=== PATIENT | male | born 1970 | race Hispanic/Latino ===

== ENCOUNTER 2019-10-08 16:19 | Emergency (ER) | payer SELFPAY ==
[2019-10-08 16:47] VITALS: TEMP 98.6
--- NOTE | 2019-10-08 17:12 | RAD ---
XR ABDOMEN SUPINE AND ERECT WITH CHEST (ABD ACUTE SERIES) HISTORY: Left-sided abdominal pain. COMPARISON: None. FINDINGS: There is a nonobstructive bowel gas pattern. There is copious stool throughout the colon and rectum; correlate clinically for constipation. No evidence of pneumoperitoneum. No radiopaque urinary stones are seen. The visualized lungs are clear. IMPRESSION: Findings of constipation. No bowel obstruction. Electronically signed by: Jose Miguel Keys MD 10/08/2019 5:11 PM CDT
--- NOTE | 2019-10-08 18:05 | CT ---
CT ABDOMEN PELVIS WITHOUT IV CONTRAST HISTORY: Left-sided abdominal pain. COMPARISON: None. TECHNIQUE: CT scan of the abdomen and pelvis was performed without IV contrast. This exam was performed according to our departmental dose-optimization program, which includes automated exposure control, adjustment of the mA and/or kV according to patient size and/or use of iterative reconstruction technique. FINDINGS: The lung bases are clear. No pleural or pericardial effusions. There is no hiatal hernia. There is a 5 mm obstructing stone in the distal left ureter with moderate left hydronephrosis and inflammatory changes. The liver, spleen, pancreas, gallbladder, adrenal glands, and right kidney are unremarkable. The pelvic organs are also unremarkable. The stomach and duodenum are unremarkable. No small bowel obstruction. The appendix is normal. No evidence of acute diverticulitis. No adenopathy, free fluid, or free air is identified. The aorta is normal in caliber. No acute bony findings are seen. No abnormal body wall hernia. IMPRESSION: 5 mm obstructing stone in the distal left ureter with moderate left hydronephrosis and inflammatory changes. Electronically signed by: Jose Miguel Keys MD 10/08/2019 6:04 PM CDT
[2019-10-08] MEDS ORDERED: SODIUM CHLORIDE 0.9% 1000ML 1,000 ML IVS ONE (18:08)
[2019-10-08] MEDS ORDERED: TAMSULOSIN 0.4 MG CAP PO ONE (18:09)
[2019-10-08] MEDS ORDERED: KETOROLAC TROMETHAMINE INJ 30 MG/ML VIAL IM ONE (18:09)
[2019-10-08] MEDS ORDERED: HYDROcodone 7.5MG/APAP 325MG 1 EA TAB PO ONE (18:55)
[2019-10-08] MEDS ORDERED: CIPROFLOXACIN 500 MG TAB PO ONE (18:55)
--- NOTE | 2019-10-08 19:01 | ED.PDOC ---
History of Present Illness - General Chief Complaint: Abdominal Pain Stated Complaint: Abd pain, N/V, not eating well Time Seen by Provider: 10/08/19 16:29 Exam Limitations: no limitations - History of Present Illness Initial Comments: The patient is a 49-year-old male presented emergency room secondary to left-sided flank and abdominal pain that started yesterday. It has been episodic and getting worse. He has had a couple of episodes of vomiting due to the pain. He does have chronic constipation. No urinary symptoms. No fever. Pain at its worst is a 10 out of 10. No syncope or near syncope. No history of diverticulitis. No history of any kidney stones. Timing/Duration: 24 hours, intermittent Severity: severe Improving Factors: nothing Worsening Factors: nothing Associated Symptoms: loss of appetite, nausea/vomiting Allergies/Adverse Reactions: Allergies NO KNOWN ALLERGY Allergy (Verified 10/08/19 16:47) Home Medications: Ambulatory Orders Ciprofloxacin [Cipro] 500 mg PO BID #10 tab 10/08/19 Tamsulosin [Flomax] 0.4 mg PO QD #7 cap 10/08/19 Tramadol HCl 50 mg PO Q8HR PRN #20 tab 10/08/19 Review of Systems - Review of Systems Constitutional: States: no symptoms reported EENTM: States: no symptoms reported Respiratory: States: no symptoms reported, short of breath - He does have shortness of breath when the pain is severe Cardiology: States: chest pain - Primarily when he vomits Gastrointestinal/Abdominal: States: abdominal pain, constipation, nausea, vomiting Genitourinary: States: no symptoms reported Musculoskeletal: States: no symptoms reported, back pain - Somewhat left flank pain Skin: States: no symptoms reported Neurological: States: no symptoms reported Endocrine: States: no symptoms reported All other Systems: No Change from Baseline Past Medical History (General) - Patient Medical History Hx Stroke: No Hx of COPD: No Hx Cardiac Disorders: No Hx Hypertension: No Hx Diabetes: No Hx Cancer: No Surgical History: no surgical history - Vaccination History Hx Influenza Vaccination: No - Social History Hx Tobacco Use: No Hx Alcohol Use: Yes Hx Substance Use: No Hx Substance Use Treatment: No Hx Depression: No - Female History Patient is a Female of Child Bearing Age (10 -59 yrs old): No Patient : No Family Medical History - Family History Mother Family History: No Known Physical Exam - Physical Exam General Appearance: Alert, Obvious distress Eye Exam: bilateral normal Ears, Nose, Throat: hearing grossly normal, normal ENT inspection Neck: non-tender, supple Respiratory: lungs clear, normal breath sounds, no respiratory distress, no accessory muscle use Cardiovascular/Chest: normal peripheral pulses, regular rate, rhythm, no edema Peripheral Pulses: radial,right: 2+, radial,left: 2+ Gastrointestinal/Abdominal: soft, other - Left-sided abdominal discomfort to palpation. Obese abdomen. No definite rebound. Rectal Exam: deferred Back Exam: no vertebral tenderness, CVA tenderness (L) Extremity: normal range of motion, non-tender, normal inspection, no pedal edema, normal capillary refill Neurologic: ticketer II-XII nml as tested, alert, normal mood/affect, oriented x 3 Skin Exam: normal color Comments: Vital Signs - 24 hr 10/08/19 10/08/19 16:41 16:48 Temperature 98.6 F Pulse Rate [ 79 79 Pulse ox] Respiratory 18 18 Rate Blood Pressure 171/85 [L arm] O2 Sat by Pulse 99 Oximetry Progress - Progress Progress: 10/08/19 19:03 The patient is a 49-year-old male presented emergency room secondary to left-sided abdominal pain that appears to be most likely due to a distal obstr ucting 5 mm left ureteral stone. There is not appear to be any evidence of infection behind it based on urinalysis. The patient has received a liter of IV fluids, a dose of Flomax, a dose of ciprofloxacin as well as pain medications. He is feeling better at this point. The patient is going to be written for 1 week of Flomax as well as 5 days of oral ciprofloxacin to prevent infection. He needs to keep himself well-hydrated. Additionally he will be written for tramadol for as needed use. He can additionally take Aleve 2 tablets twice a day for the next 3 to 4 days. If he is still having symptoms that are significant after the next 3 or 4 days then he needs to be reevaluated with his primary care doctor. ER warnings are given. [email or web address] jose [id number] 10/08/19 19:06 [facility] consulted - Results/Orders Results/Orders: Abdomen shows constipation. No obstruction. CT scan abdomen pelvis shows a 5 mm stone in the left distal ureter with proximal hydronephrosis and some inflammatory changes. See report for details. EKG of shows normal sinus rhythm 82 bpm. Normal axis. Normal R wave progression. Normal QT interval. No ST segment or T wave changes indicative of acute ischemia. Laboratory Tests 10/08/19 10/08/19 10/08/19 16:42 16:42 16:42 WBC 8.6 RBC 4.31 L Hgb 13.1 L Hct 36.8 L MCV 85.4 MCH 30.3 MCHC 35.5 RDW 13.6 Plt Count 150 MPV 8.5 Absolute Neuts (auto) 6.60 Absolute Lymphs (auto) 1.30 Absolute Monos (auto) 0.60 Absolute Eos (auto) 0.20 Absolute Basos (auto) 0.00 Neutrophils % 76.2 Lymphocytes % 15.0 L Monocytes % 6.5 Eosinophils % 2.1 Basophils % 0.2 PT 9.3 INR < 1.00 PTT (SP) 26.9 Sodium 135 Potassium 3.6 Chloride 102 Carbon Dioxide 24 Anion Gap 12.6 BUN 18 Creatinine 1.46 H BUN/Creatinine Ratio 12.3 Random Glucose 129 H Serum Osmolality 273.7 L Lactic Acid Calcium 8.6 Total Bilirubin 0.6 AST 20 ALT 27 Alkaline Phosphatase 57 Creatine Kinase 91 CK-MB (CK-2) 1.2 CK-MB (CK-2) % Not Reportable Troponin I < 0.02 B-Natriuretic Peptide 78.7 Serum Total Protein 7.7 Albumin 4.3 Globulin 3.4 Albumin/Globulin Ratio 1.3 Amylase 87 Lipase 35 Urine Color Urine Appearance Urine pH Ur Specific [place]bes Urine Protein Urine Glucose (UA) Urine Ketones Urine Blood Urine Nitrite Urine Bilirubin Urine Urobilinogen Ur Leukocyte Esterase Urine RBC Urine WBC Ur Epithelial Cells Urine Bacteria 10/08/19 10/08/19 16:42 18:18 WBC RBC Hgb Hct MCV MCH MCHC RDW Plt Count MPV Absolute Neuts (auto) Absolute Lymphs (auto) Absolute Monos (auto) Absolute Eos (auto) Absolute Basos (auto) Neutrophils % Lymphocytes % Monocytes % Eosinophils % Basophils % PT INR PTT (SP) Sodium Potassium Chloride Carbon Dioxide Anion Gap BUN Creatinine BUN/Creatinine Ratio Random Glucose Serum Osmolality Lactic Acid 1.2 Calcium Total Bilirubin AST ALT Alkaline Phosphatase Creatine Kinase CK-MB (CK-2) CK-MB (CK-2) % Troponin I B-Natriuretic Peptide Serum Total Protein Albumin Globulin Albumin/Globulin Ratio Amylase Lipase Urine Color Yellow Urine Appearance Clear Urine pH 6.5 Ur Specific [place]bes 1.025 Urine Protein Negative Urine Glucose (UA) Negative Urine Ketones Negative Urine Blood Moderate H Urine Nitrite Negative Urine Bilirubin Negative Urine Urobilinogen 1.0 Ur Leukocyte Esterase Negative Urine RBC 5-10 H Urine WBC 0 Ur Epithelial Cells 0-1 Urine Bacteria 0 Departure - Departure Clinical Impression: Ureterolithiasis Disposition: Discharge to Home or Self Care Condition: Fair Departure Forms: ED Discharge - Pt. Copy, Patient Portal Self Enrollment Instructions: Kidney Stones (DC) Diet: regular diet Activity: increase activity as tolerated Prescriptions: Tramadol HCl 50 mg PO Q8HR PRN #20 tab PRN Reason: Moderate Pain Ciprofloxacin [Cipro] 500 mg PO BID #10 tab Tamsulosin [Flomax] 0.4 mg PO QD #7 cap Home Medications: Ambulatory Orders Ciprofloxacin [Cipro] 500 mg PO BID #10 tab 10/08/19 Tamsulosin [Flomax] 0.4 mg PO QD #7 cap 10/08/19 Tramadol HCl 50 mg PO Q8HR PRN #20 tab 10/08/19 Additional Instructions: The patient is a 49-year-old male presented emergency room secondary to left-sided abdominal pain that appears to be most likely due to a distal obstructing 5 mm left ureteral stone. There is not appear to be any evidence of infection behind it based on urinalysis. The patient has received a liter of IV fluids, a dose of Flomax, a dose of ciprofloxacin as well as pain medications. He is feeling better at this point. The patient is going to be written for 1 week of Flomax as well as 5 days of oral ciprofloxacin to prevent infection. He needs to keep himself well-hydrated. Additionally he will be written for tramadol for as needed use. He can additionally take Aleve 2 tablets twice a day for the next 3 to 4 days. If he is still having symptoms that are significant after the next 3 or 4 days then he needs to be reevaluated with his primary care doctor. ER warnings are given. Print Language: Angolan
[2019-10-08 19:13] VITALS: BP 160/84; O2SAT 98
== END 2019-10-08 19:18 | disposition home or self-care (01) ==
LOC: ER 16:19
DX: N20.1 Calculus of ureter (principal); R11.2 Nausea with vomiting, unspecified; R10.9 Unspecified abdominal pain; K59.00 Constipation, unspecified
CPT/HCPCS: 36415; 74019; 74176; 80053; 81001; 82150; 82550; 82553; 83605; 83690; 83880; 84484; 85025; 85610; 85730; 87040; 93005; J1885; J7030